=== PATIENT | male | born 1965 | race Caucasian/White ===

== ENCOUNTER 2017-07-09 08:32 | Day surgery (SDC) | payer BC ==
[2017-07-09 09:06] VITALS: O2SAT 100
[2017-07-09 09:07] VITALS: BMI 25.6
[2017-07-09] MEDS ORDERED: Lactated Ringer's 500 ML IV SCH (10:15)
[2017-07-09] MEDS ORDERED: Propofol 10 mg/ml Inj (20 ML) ONE (10:35)
--- NOTE | 2017-07-09 10:36 | CP.SDSHP ---
Same Day Surgery H & P - History Proposed Procedure: colonoscopy Pre-Op Diagnosis: screening - Allergies Allergies: Allergies No Known Allergies Allergy (Verified 07/09/17 09:07) - Physical Exam General Appearance: NAD Vital Signs: Vital Signs 07/09/17 08:59 Temperature 97.9 F Pulse Rate 92 H Respiratory 18 Rate Blood Pressure 123/83 O2 Sat by Pulse 100 Oximetry Mental Status: Alert & Oriented x3 Neuro: WNL Heart: WNL Lungs: WNL GI: WNL - {Optional Preform as Required} Abdomen: WNL - Impression Pt. Evaluated Today:Candidate for Anesthesia & Procedure: Yes - Date & Time Date: 07/09/17 Time: 10:36 Short Stay Discharge - Short Stay Discharge Admitting Diagnosis/Reason for Visit: ENCOUNTER FOR SCREENING FOR MALIGNANT NEOPLASM OF Disposition: HOME/ ROUTINE
[2017-07-09 11:24] VITALS: TEMP 98.2
[2017-07-09 12:02] VITALS: BP 136/77; PULSE 76; RESP 12
== END 2017-07-09 12:10 | disposition home or self-care (01) ==
LOC: C.ENDO 08:32
PROVIDERS: ATTEND Internal Medicine Gastroenterology
DX: Z12.11 Encounter for screening for malignant neoplasm of colon (principal); D12.5 Benign neoplasm of sigmoid colon; K64.0 First degree hemorrhoids
CPT/HCPCS: 45380; 88305; J2704; J7120